=== PATIENT | female | born 1995 | race Hispanic/Latino ===

== ENCOUNTER 2018-11-01 08:03 | Outpatient (CLI) | payer MEDICAID ==
[2018-11-01 11:28] VITALS: BP 121/78
[2018-11-01] MEDS ORDERED: VISTARIL PO ONE (11:43)
== END 2018-11-01 12:17 | disposition home or self-care (01) ==
LOC: TRG 08:03
PROVIDERS: ATTEND Obstetrics & Gynecology
DX: O47.1 False labor at or after 37 completed weeks of gestation (principal); Z3A.38 38 weeks gestation of pregnancy
CPT/HCPCS: Q0177

== ENCOUNTER 2018-11-02 12:04 | Inpatient (IN) | payer MEDICAID ==
[2018-11-02] MEDS ORDERED: LACTATED RINGERS 1,000 ML IV ONE (12:40)
[2018-11-02] MEDS ORDERED: LACTATED RINGERS 1,000 ML IV SCH ×2 (15:00→16:00)
[2018-11-02] MEDS ORDERED: SUBLIMAZE IV PRN (15:38)
[2018-11-02] MEDS ORDERED: BRETHINE SUB-Q PRN (15:38)
[2018-11-02] MEDS ORDERED: MINERAL OIL PO PRN (15:38)
[2018-11-02] MEDS ORDERED: BRETHINE IVP PRN (15:38)
[2018-11-02] MEDS ORDERED: PITOCin/NS 20 UNIT/1000ML DRIP 20 UNITS/1,000 ML BAG IV SCH ×2 (16:00→22:00)
[2018-11-02] MEDS ORDERED: XYLOCAINE 2% INFILTRATI ONE (16:00)
[2018-11-02] MEDS ORDERED: PITOCin/NS 30 UNIT/500ML 30 UNITS/500 ML BAG IV SCH ×2 (16:00)
[2018-11-02 16:29] LABS: Hematocrit 30.5 % (30.3-42.9); Mean Corpuscular HGB Conc 33 % (30-34); Mean Corpuscular Volume 77 fl (79-97); Platelet Count 177 K/mm3 (140-440); Red Blood Count 3.99 M/mm3 (3.65-5.03); Red Cell Distribution Width 16.6 % (13.2-15.2)
[2018-11-02] MEDS ORDERED: NARCAN 2 MG/2 ML IV PRN (16:40)
[2018-11-02] MEDS ORDERED: fentaNYL-BUPIV 2 MCG/ML-0.125% 200 MCG/100 ML BAG EPIDURAL SCH (17:00)
--- NOTE | 2018-11-02 17:12 | History and Physical Report ---
History of Present Illness Date of examination: 11/02/18 Date of admission: 11/02/18 16:21 Chief complaint: contractions, sent from office History of present illness: Menstrual History Regularity: irregular Menses every: 30 days Duration: 5 LMP: 02/03/2018 LMP reliability: definite LMP character: normal test type: urine test Date: 03/22/2018 BC at conception: BCP Planned ? no EDC Calculations LMP: 11/10/2018 EDC Confirmation: 11/10/2018 Gestational Age: 33 4/7 weeks Past History : 1 Term Births: 0 Premature Births: 0 Living Children: 0 Para: 0 Mult. Births: 0 Prev : 0 Prev. attempt? 0 Aborta: 0 Elect. Ab: 0 Spont. 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 Past Medical History Surgery (Non-rn transition): negative Tonsillectomy Surgery on head from fall when a baby Abnormal PAP: negative DELILAH Exposure: negative Infertility: negative Uterine Anomaly: negative Uterine Surgery (not C/S): negative Other Gynecologic Problems: negative Family Hx: Sister - POTS Sister - EDS Mother - EDS Social Hx: Patient is single Smoking History: Patient has never smoked. Infection History Hx of STD: HPV HIV Risk Eval: low risk Hepatitis B Risk Eval: low risk Personal hx. of genital herpes: no Partner hx. of genital herpes: no Rash, Viral, or Febrile illness since last LMP? no Varicella/Chicken Pox Status: Previous Disease Genetic History Congenital Heart Defect: Mom: no Dad: no Rk Disease: Mom: no Dad: no Thalassemia Mom: no Dad: no Neural Tube Defect Mom: no Dad: no Down's Syndrome Mom: no Dad: no Finn-Sachs Mom: no Dad: no Sickle Cell Disease/Trait Mom: no Dad: no Hemophilia Mom: no Dad: no Muscular Dystrophy Mom: no Dad: no Cystic Fibrosis Mom: no Dad: no [place] Chorea Mom: no Dad: no Mental Retardation Mom: no Dad: no Fragile X Mom: no Dad: no Other Genetic/Chromosomal Disorder Mom: yes Dad: no Comments: EDS/POTS Child w/other defect Mom: no Dad: no Enviromental Exposures Xray Exposure: no Medication, drug, or alcohol use since LMP: no Chemical/Other Exposure: no Exposure to Cat Liter: no Hx of Parvovirus (Fifth Disease): no Occupational Exposure to Children: none Active Medications (reviewed today): TRI SPRINTEC () 1 po qd DOXY- CYCL 100 MG () FLAGYL 500MG () LORTAB 10MG () TRI-SPRINTEC () Current Allergies: * TRAMADOL (Critical) Past History Past Medical History: other (see HPI) Past Surgical History: other (see HPI) 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) Family/Genetic History: other (see HPI) Social history: other (see HPI) - Obstetrical History : 1 Medications and Allergies Allergies Allergy/AdvReac Type Severity Reaction Status Date / Time tramadol Allergy Dizziness Verified 11/01/18 09:43 Home Medications Medication Instructions Recorded Confirmed Last Taken Type Vitamin 1 tab PO DAILY 11/01/18 11/03/18 11/01/18 History Docusate Sodium [Colace] 100 mg PO BID PRN #60 capsule 11/02/18 Unknown Rx Ferrous Sulfate [Feosol 325 MG tab] 325 mg PO BID #60 tablet 11/02/18 Unknown Rx Ibuprofen [Motrin 800 MG tab] 800 mg PO Q6HR PRN #30 tablet 11/02/18 Unknown Rx oxyCODONE /ACETAMINOPHEN [Percocet 1 tab PO Q4HR #30 tab 11/02/18 Unknown Rx 5/325] Active Meds: Active Medications Ephedrine Sulfate (Ephedrine Sulfate) 10 mg IV Q2M PRN PRN Reason: Hypotension Fentanyl (Sublimaze) 100 mcg IV Q2H PRN PRN Reason: Labor Pain Oxytocin/Sodium Chloride (Pitocin/Ns 20 Unit/1000ml Drip) 20 units in 1,000 mls @ 125 mls/hr IV DIRECT MADELEINE Oxytocin/Sodium Chloride (Pitocin/Ns 30 Unit/500ml) 30 units in 500 mls @ 1 mls/hr IV TITR MADELEINE; Protocol Oxytocin/Sodium Chloride (Pitocin/Ns 30 Unit/500ml) 30 units in 500 mls @ 2 mls/hr IV TITR MADELEINE; Protocol Lactated Ringer's (Lactated Ringers) 1,000 mls @ 125 mls/hr IV DIRECT MADELEINE Fentanyl/Bupivacaine/Sodium Chlor (Fentanyl-Bupiv 2 Mcg/Ml-0.125%) 200 mcg in 100 mls @ 12 mls/hr EPIDURAL TITR MADELEINE; Protocol Mineral Oil (Mineral Oil) 30 ml PO QHS PRN PRN Reason: Constipation Naloxone HCl (Narcan 2 Mg/2 Ml) 0.2 mg IV Q5M PRN PRN Reason: Respiratory sedation Terbutaline Sulfate (Brethine) 0.25 mg SUB-Q ONCE PRN PRN Reason: Hyperstimulation/Hypertonicity Terbutaline Sulfate (Brethine) 0.25 mg IVP ONCE PRN PRN Reason: Hyperstimulation/Hypertonicity Review of Systems All systems: negative Genitourinary: contractions - Vital Signs Vital signs: Vital Signs Pulse Pulse Ox 89 98 11/02/18 12:38 11/02/18 12:38 Temp Pulse Resp BP Pulse Ox 98 F 77 20 135/81 97 11/02/18 12:41 11/02/18 16:51 11/02/18 12:41 11/02/18 16:45 11/02/18 16:51 - Physical Exam Breasts: Positive: normal Cardiovascular: Regular rate, Normal S1, Normal S2 Abdomen: Positive: normal appearance, soft, normal bowel sounds. Negative: distention, tenderness Genitourinary (Female): Positive: normal external genitalia, normal perenium Vulva: both: normal Vagina: Positive: normal moisture. Negative: discharge Cervix: Negative: lesion, discharge Uterus: Positive: normal size, normal contour Adnexa: both: normal Anus/Rectum: Positive: normal perianal skin, heme negative. Negative: rectal mass, hemorrhoids Extremities: Deep Tendon Reflex Grade: Normal +2 - Obstetrical FHR: auscultation normal Results Result Diagrams: 11/02/18 13:00 Abnormal lab results 11/02/18 Range/Units 13:00 Hgb 10.0 L (10.1-14.3) gm/dl MCV 77 L (79-97) fl MCH 25 L (28-32) pg RDW 16.6 H (13.2-15.2) % All other labs normal. Assessment and Plan 38.6 IUP sent from office for contractions. SVE in office 1.5, SVE in triage 3.5/70/-1. Patient admitted for labor. Routine admission orders placed in EMR. Will plan for early epidural due to EDS/POTS and anticipated difficulty to control pain. Anticipate .
--- NOTE | 2018-11-02 17:22 | Anesthesia Consultation ---
Anesthesia Consult and Med Hx Date of service: 11/02/18 - Airway Anesthetic Teeth Evaluation: Good ROM Head & Neck: Adequate Mental/Hyoid Distance: Adequate Mallampati Class: Class II Intubation Access Assessment: Probably Good - Pre-Operative Health Status ASA Pre-Surgery Classification: ASA2 Proposed Anesthetic Plan: Epidural, Spinal - Pulmonary Hx Respiratory Symptoms: No - Cardiovascular System Hx Hypertension: No Hx Heart Attack/AMI: No Hx Percutaneous Transluminal Coronary Angioplasty (PTCA): No Hx Cardia Arrhythmia: No Hx Valvular Heart Disease: No - Central Nervous System Hx Seizures: No CVA: No Hx Psychiatric Problems: No - Endocrine Hx Renal Disease: No Hx Liver Disease: No Hx Insulin Dependent Diabetes: No Hx Non-Insulin Dependent Diabetes: No Hx Thyroid Disease: No - Hematic Hx Anemia: Yes - Other Systems Hx Obesity: No - Additional Comments Anesthesia Medical History Comments: PMH POTS and Luz-Danlos Syndrome. No hx anesthetic complications, cardiac, or neurologic disease. No prior epidurals.
[2018-11-02] MEDS ORDERED: MARCAINE 0.25% INFILTRATI ONE (18:23)
[2018-11-02] MEDS ORDERED: ANCEF/STERILE WATER 2 GM/20 ML 2 GM/20 ML SYRINGE IV ONE (20:26)
[2018-11-02] MEDS ORDERED: PEPCID IV ONE (20:26)
[2018-11-02] MEDS ORDERED: REGLAN ONE ×2 (20:26→21:04)
[2018-11-02] MEDS ORDERED: BICITRA ONE (20:26)
[2018-11-02] MEDS ORDERED: WATER FOR IRRIG STERILE IR ONE (20:31)
[2018-11-02] MEDS ORDERED: NACL 0.9% IR ONE (20:31)
[2018-11-02] MEDS ORDERED: VERSED IV ONE (20:39)
[2018-11-02] MEDS ORDERED: MARCAINE 0.5% INFILTRATI ONE (20:42)
[2018-11-02] MEDS ORDERED: DILAUDID ONE (20:53)
[2018-11-02] MEDS ORDERED: NEO SYNEPHRINE/NS Syringe(OR USE) IV ONE (21:04)
[2018-11-02] MEDS ORDERED: DECADRON ONE (21:04)
[2018-11-02] MEDS ORDERED: ZOFRAN ONE (21:04)
--- NOTE | 2018-11-02 21:27 | Event Note ---
Date: 11/02/18 Pt noted to have persistent bradycardia that did not respond to position change. Stat c/s was called and pt gave verbal consent for c/s. Proceeded to OR for stat c/s.
[2018-11-02] MEDS ORDERED: NARCAN 0.4 MG/1 ML IV PRN ×2 (21:39→22:23)
[2018-11-02] MEDS ORDERED: LANSINOH TP PRN (21:39)
[2018-11-02] MEDS ORDERED: TUCKS PAD TP PRN (21:39)
[2018-11-02] MEDS ORDERED: ZOFRAN IV PRN ×2 (21:39→22:23)
[2018-11-02] MEDS ORDERED: SODIUM CHLORIDE FLUSH SYRINGE 10 ML IV NR (22:00)
[2018-11-02] MEDS ORDERED: D5LR 1,000 ML IV SCH (22:00)
--- NOTE | 2018-11-02 22:08 | Operative Report ---
Operative Report Operative Report: Date of procedure: 11/02/2018 Pre-operative diagnosis: 38 weeks gestation bradycardia Remote from delivery Post-operative diagnosis: Same plus possible placenta abruption Procedure name(s): Primary low transverse section via Pfannenstiel skin incision Surgeon: Dr. Medrano Manager Clinic: [facility] Anesthesia: Epidural EBL: 400 mL Urine output: 450 mL clear urine at end of procedure. She'll be noted that prior to the onset of the procedure the urine was blood tinged but appeared to be clearing in the catheter tubing at the end of the procedure. Fluids: 1 L Findings: Liveborn female 7 lbs. 12 oz. Apgars of 8 and 9 at one and 5 minutes What appeared to be a placental abruption with the placenta from the fundal surface of the uterus Grossly normal fallopian tubes and ovaries bilaterally Indications: Patient presented in active labor. Patient was noted to have repetitive contractions. Patient began to have hyperstimulation spontaneously without being on any medications. As at this point that patient was noted to have bradycardia. There was excessive vaginal bleeding or was also noted at this time. Position change as well as terbutaline was given to relax the uterus with no change in status. Patient was examined and noted to be remote from delivery. Decision was made to proceed with stat section. Patient gave verbal consent for section at this time. Procedure: Patient was taking to the operating room. Patient was then prepped and draped in sterile fashion after anesthesia was found to be adequate. A low transverse skin incision was made with the scalpel and carried down to the underlying layer of fascia with the scalpel. The fascia was then incised in the midline and this incision was extended bilaterally with the scalpel. The bladder blade was replaced. A lower transverse uterine incision was made with the scalpel and extended bilaterally with blunt dissection. The infant's head was then delivered atraumatically. The anterior shoulder and rest of infant delivered without difficulty. The umbilical cord was clamped x2. The cord was cut. The infant was then placed in sterile bassinet. The placenta was manually extracted in its entirety. The uterus was exteriorized and cleared of all clots and debris. The uterine incision was closed using 0 Vicryl in a running locking fashion. A second imbricating layer of the same suture was then created. The posterior cul-de-sac was copiously irrigated. The uterus was returned to the abdomen. The gutters were also irrigated. The anterior rectus muscles were reapproximated using 3-0 Vicryl. The anterior rectus fascia was reapproximated using 0 Vicryl in a running fashion. The subcuticular fat was reapproximated using 2-0 Vicryl in a running fashion. The skin was reapproximated with 4-0 Vicryl in a subcuticular stitch. The patient tolerated the procedure well. Due to the surgery being stat, an x-ray was done after the procedure and was noted to be negative for instruments, laps, or needles intra-abdominally. Patient was taken to the recovery room awake and in stable condition.
--- NOTE | 2018-11-02 22:09 | XRay Report ---
PROCEDURE: XR ABDOMEN 1V AP TECHNIQUE: Abdominal radiograph, single view. HISTORY: instrument count emergency COMPARISONS: None . FINDINGS: Bowel gas pattern: Nonobstructive . Masses or calcifications: None . Bony structures: No significant abnormality . Other: The uterus is enlarged. There are no foreign bodies. . IMPRESSION: There are no foreign bodies.. This document is electronically signed by Harrison Sanchez MD., Nov 02 2018 10:07:22 PM ET
[2018-11-02] MEDS ORDERED: PHENERGAN PR PRN (22:23)
[2018-11-02] MEDS ORDERED: MORPHINE IV PRN (22:23)
[2018-11-02] MEDS ORDERED: PHENERGAN PO PRN (22:23)
[2018-11-02] MEDS ORDERED: TYLENOL PO ONE (22:23)
--- NOTE | 2018-11-02 22:23 | Anesthesia Day of Surgery ---
Anesthesia Day of Surgery - Day of Surgery Patient Examined: Yes Patient H&P Reviewed: Yes Patient is NPO: Yes Romulo's Test: N/A
[2018-11-02] MEDS ORDERED: SODIUM CHLORIDE FLUSH SYRINGE 10 ML IV PRN (23:00)
[2018-11-03] MEDS: TORADOL IV PRN ×4 (00:25→16:37)
[2018-11-03] MEDS: DILAUDID IV PRN ×2 (02:21→08:46)
[2018-11-03] MEDS: ANCEF/NS 1 GM/50 ML 1 GM/50 ML BAG IV SCH ×2 (04:07→10:53)
[2018-11-03] MEDS: METHERGINE PO SCH ×3 (05:51→22:52)
[2018-11-03] MEDS ORDERED: BOOSTRIX IM ONE (06:00)
--- NOTE | 2018-11-03 06:22 | Progress Note ---
Assessment and Plan - Patient Problems (1) delivery delivered Onset Date: ~11/02/18 Current Visit: Yes Status: Acute Plan to address problem: Resting in bed Will continue pathway Advance as tolerated Subjective - Subjective Date of service: 11/03/18 (No c/o voiced) Principal diagnosis: 12 hours s/p section Patient reports: voiding normally (clear yellow urine to BSB) : doing well Objective - Vital Signs Latest vital signs: Vital Signs Temp Pulse Resp BP BP Pulse Ox 11/03/18 04:00 98.8 F 73 18 101/71 11/03/18 00:30 98.7 F 71 18 108/79 11/02/18 23:02 99.4 F 18 123/72 11/02/18 22:25 99.4 F 91 H 21 109/82 100 11/02/18 22:10 93 H 17 116/60 96 11/02/18 21:55 104 H 21 105/70 97 11/02/18 21:40 108 H 17 111/75 99 11/02/18 21:35 110 H 19 97/76 99 11/02/18 21:30 114 H 21 105/59 99 11/02/18 21:25 98.4 F 114 H 20 101/51 100 11/02/18 20:21 78 98 11/02/18 20:16 73 99 11/02/18 20:11 80 99 11/02/18 20:06 68 97 11/02/18 20:03 81 93 11/02/18 20:01 69 98 11/02/18 19:59 18 11/02/18 19:56 67 98 11/02/18 19:55 80 90 11/02/18 19:51 70 98 11/02/18 19:49 72 94 11/02/18 19:46 76 98 11/02/18 19:45 71 126/68 11/02/18 19:41 74 99 11/02/18 19:36 80 99 11/02/18 19:31 83 98 11/02/18 19:28 83 94 11/02/18 19:26 77 99 11/02/18 19:21 80 99 11/02/18 19:18 78 93 11/02/18 19:16 79 98 11/02/18 19:11 82 98 11/02/18 19:06 77 97 11/02/18 19:02 86 94 11/02/18 19:01 95 H 97 11/02/18 18:56 81 97 05 18:51 90 98 05 18:46 72 97 05 18:43 61 114/66 05 18:41 68 98 11/02/18 18:37 74 110/59 05 18:36 73 98 05 18:33 82 124/72 05 18:32 75 127/75 05 18:31 79 98 05 18:26 70 100 05 18:22 81 134/76 05 18:21 74 98 05 18:16 90 98 11/02/18 18:11 85 97 11/02/18 18:06 74 100 11/02/18 18:01 84 98 11/02/18 17:56 83 98 11/02/18 17:54 71 137/79 11/02/18 17:51 69 98 11/02/18 17:46 86 99 11/02/18 17:41 85 100 11/02/18 17:36 82 100 11/02/18 17:31 74 100 11/02/18 17:26 70 100 11/02/18 17:21 73 122/66 99 11/02/18 17:16 76 100 05 17:14 69 124/71 11/02/18 17:11 75 99 11/02/18 17:10 75 123/70 11/02/18 17:08 78 128/62 11/02/18 17:06 76 99 05 17:04 84 146/72 05 17:01 76 99 05 16:58 75 144/85 11/02/18 16:56 69 98 11/02/18 16:51 77 97 05 16:46 100 05 16:45 78 135/81 05 13:58 70 98 05 13:53 83 100 05 13:48 79 98 05 13:43 81 97 05 13:38 75 98 05 13:33 66 100 05 13:28 84 100 05/29/19 13:23 85 100 11/02/18 13:18 84 100 11/02/18 13:13 76 98 11/02/18 13:08 84 99 11/02/18 13:03 75 98 11/02/18 12:58 82 99 11/02/18 12:53 93 H 98 11/02/18 12:48 67 97 11/02/18 12:43 94 H 98 11/02/18 12:41 98 F 85 20 124/81 97 11/02/18 12:40 83 124/81 11/02/18 12:38 89 98 Intake and Output 11/02/18 11/02/18 11/03/18 14:59 22:59 06:59 Intake Total 1200 Output Total 550 1000 Balance 650 -1000 Intake: IV 1200 Output: Urine 550 1000 Indwelling Catheter 1000 Other: Total, Output Amount 1000 # Voids Void 1 Weight 173 lb Estimated Blood Loss 400 Patient Weight 11/03/18 06:59 Weight 173 lb - Exam Breasts: Present: deferred Cardiovascular: Present: Regular rate Lungs: Present: Normal air movement Abdomen: Present: normal appearance, soft Uterus: Present: normal, fundal height at umbilicus Extremities: Present: normal Deep Tendon Reflex Grade: Normal +2 Incision: Present: normal, dry, intact, dressed (to be removed this evening) - Labs Labs: Abnormal lab results 11/02/18 Range/Units 13:00 Hgb 10.0 L (10.1-14.3) gm/dl MCV 77 L (79-97) fl MCH 25 L (28-32) pg RDW 16.6 H (13.2-15.2) %
[2018-11-03 11:02] LABS: Hemoglobin 8.2 gm/dl (10.1-14.3)
[2018-11-03] MEDS: IBUPROFEN PO PRN ×2 (13:32→22:52)
[2018-11-03] MEDS: PERCOCET 5/325 PO PRN ×2 (17:01→22:52)
[2018-11-04] MEDS: PERCOCET 5/325 PO PRN ×3 (06:00→18:17)
[2018-11-04] MEDS ORDERED: NORCO 5/325 PO PRN (06:00)
[2018-11-04] MEDS: METHERGINE PO SCH ×3 (06:00→22:30)
[2018-11-04] MEDS: IBUPROFEN PO PRN ×3 (06:01→18:17)
--- NOTE | 2018-11-04 08:18 | Progress Note ---
Assessment and Plan 23y/o postop day #2; continue postop pathway, possible d/c home tonight if patient desires, she was unsure at time of rounds - Patient Problems (1) Anemia due to blood loss, acute Current Visit: Yes Status: Acute Plan to address problem: postop H&H 8.2/26.0 Asymptomatic FE supplementation (2) delivery delivered Onset Date: ~11/02/18 Current Visit: Yes Status: Acute Plan to address problem: Dressing d&I (rn to remove after shower this morning per pt request) Lochia scant Fundus firm postop H&H 8.2/26.0 Continue postop pathway Subjective - Subjective Date of service: 11/04/18 Principal diagnosis: day #2 s/p priamry c/s Patient reports: appetite normal, voiding normally, pain well controlled, flatus, ambulating normally, no dizzy ambulation, no nauseated [place]: doing well, nursing well Objective - Vital Signs Latest vital signs: Vital Signs Temp Pulse Resp BP BP Pulse Ox 11/04/18 00:21 79 131/75 96 11/04/18 00:20 98.8 F 11/03/18 16:12 98.3 F 77 14 125/79 99 11/03/18 13:45 98.2 F 89 16 120/71 99 Intake and Output 11/03/18 11/04/18 11/04/18 23:59 07:59 15:59 Intake Total 800 Output Total 900 Balance -100 Intake: Oral 800 Output: Urine 900 Void 900 Other: Total, Intake Amount 800 Total, Output Amount 900 Voiding Method Toilet # Voids Void 2 - Exam Breasts: Present: normal Cardiovascular: Present: Regular rate Lungs: Present: Clear to auscultation, Normal air movement Abdomen: Present: normal appearance, soft Vulva: both: normal Uterus: Present: normal, firm, fundal height at umbilicus Extremities: Present: normal Deep Tendon Reflex Grade: Normal +2 Incision: Present: normal, dry, dressed - Labs Labs: Abnormal lab results 11/03/18 Range/Units 09:45 Hgb 8.2 L (10.1-14.3) gm/dl Hct 26.0 L (30.3-42.9) %
[2018-11-05] MEDS: PERCOCET 5/325 PO PRN ×2 (00:08→06:25)
[2018-11-05] MEDS: IBUPROFEN PO PRN ×2 (00:09→12:15)
[2018-11-05] MEDS ORDERED: BOOSTRIX IM ONE ×2 (06:00→12:41)
[2018-11-05] MEDS: METHERGINE PO SCH (06:30)
--- NOTE | 2018-11-05 11:17 | Discharge Summary ---
Providers - Providers Date of Admission: 11/02/18 16:21 Date of discharge: 11/05/18 Attending physician: BETTY LAURENT Primary care physician: BETTY LAURENT Hospitalization Reason for admission: active labor, IUP at term Delivery: Procedure: section Incision: normal, dry, intact Other procedures: none complications: none Discharge diagnosis: IUP at term delivered [place] baby: female Hospital course: Patient was admitted to labor and delivery with complaints of contractions. During labor the patient had nonreassuring tracing with bradycardia and decision was made to move to section. Her post operative course was benign she was afebrile throughout. Patient postoperative day 1 hematocrit was in an acceptable range. Patient had no orthostatic symptoms. Patient was tolerating regular diet and voiding without difficulty at time of discharge. Patient incision was healing well without evidence of infection. Patient is b reast feeding. control control choice is tubal ligation Condition at discharge: Good Disposition: DC-01 TO HOME OR SELFCARE - Discharge Diagnoses (1) delivery delivered Status: Acute Plan - Discharge Medications Prescriptions: Docusate Sodium [Colace] 100 mg PO BID PRN #60 capsule PRN Reason: Constipation Ferrous Sulfate [Feosol 325 MG tab] 325 mg PO BID #60 tablet Ibuprofen [Motrin 800 MG tab] 800 mg PO Q6HR PRN #30 tablet PRN Reason: Pain , Severe (7-10) oxyCODONE /ACETAMINOPHEN [Percocet 5/325] 1 tab PO Q4HR #30 tab - Provider Discharge Summary Activity: routine, no sex for 6 weeks, no heavy lifting 4 weeks, no strenuous exercise Diet: routine Instructions: routine Additional instructions: [] Smoking cessation referral if applicable(refer to patient education folder for contact #) [] Refer to [facility] Booklet Call your doctor immediately for: * Fever > 100.5 * Heavy vaginal bleeding ( >1 pad per hour) * Severe persistent headache * Shortness of breath * Reddened, hot, painful area to leg or breast * Drainage or odor from incision. * Keep incision clean and dry at all times and follow doctor's instructions regarding bathing/showering - Follow up plan Follow up: BETTY LAURENT MD [Primary Care Provider] - 7 Days
[2018-11-05 12:28] VITALS: BP 134/81
== END 2018-11-05 13:15 | disposition home or self-care (01) | DRG 765 ==
LOC: TRG 12:04 → LD 16:21 → OB 23:02
PROVIDERS: ADMIT Obstetrics & Gynecology; ATTEND Obstetrics & Gynecology
PROC: 10D00Z1 Extraction of Products of Conception, Low, Open Approach (ICD-10-PCS; principal; 2018-11-02)
DX: O76 Abnormality in fetal heart rate and rhythm complicating labor and delivery (principal); O45.93 Premature separation of placenta, unspecified, third trimester; O99.02 Anemia complicating childbirth; D62 Acute posthemorrhagic anemia; Z3A.38 38 weeks gestation of pregnancy; Z37.0 Single live birth; Z82.3 Family history of stroke; Z79.899 Other long term (current) drug therapy
CPT/HCPCS: 36415; 74018; 85014; 85018; 85027; 86592; 86850; 86900; 86901; 88307; 90715; G0378; J0690; J1100; J1170; J1885; J2250; J2370; J2405; J2590; J2765; J3010; J3105; J7120; J7121; Q0177